=== PATIENT | female | born 1955 | race Caucasian/White ===

== ENCOUNTER 2018-10-04 08:44 | Inpatient (IN) | payer MEDICAID ==
--- NOTE | 2018-10-03 15:27 | NUR ---
PATIENT WAS SEEN IN [facility] TODAY. SHE HAS AN OPEN, RED WOUND WITH YELLOW DRAINAGE. PHOTO WAS TAKEN AND SHOWN TO DR KELLEY. DR KELLEY STATED THAT WE WILL PROCEED WITH THE SURGERY.
[2018-10-03 16:06] LABS: BASOPHILS % (AUTO) 0.3 % (0-1); EOSINOPHILS # (AUTO) 0.1 X10'3 (0-0.9); EOSINOPHILS % (AUTO) 1.3 % (0-6); LYMPHOCYTES # (AUTO) 0.7 X10'3 (1.1-4.8); LYMPHOCYTES % (AUTO) 7.6 % (21-51); MEAN CORPUSCULAR HEMOGLOBIN 34.2 PG (27.0-31.0); MEAN CORPUSCULAR HGB CONC 33.1 % (33.0-36.5); MEAN CORPUSCULAR VOLUME 103.3 FL (78-98); MEAN PLATELET VOLUME 7.3 FL (7.4-10.4); MONOCYTES # (AUTO) 0.9 X10'3 (0-0.9); MONOCYTES % (AUTO) 9.2 % (2-12); NEUTROPHILS % (AUTO) 81.6 % (42-75); PRE OP HEMATOCRIT 36.9 % (35.0-45.0); PRE OP HEMOGLOBIN 12.2 g/dL (12.0-16.0); PRE OP PLATELET COUNT 514 X10'3 (140-440); RED BLOOD COUNT 3.57 X10'6 (4.20-5.60); RED CELL DISTRIBUTION WIDTH 14.6 % (11.5-14.5)
[2018-10-03 16:21] LABS: ALBUMIN 3.2 G/DL (3.4-5.0); ALBUMIN/GLOBULIN RATIO 0.8 (1.1-1.5); ALKALINE PHOSPHATASE 82 IU/L (46-116); BLOOD UREA NITROGEN 17 MG/DL (7-18); BUN/CREATININE RATIO 17.2 (6.6-38.0); CALCIUM 8.7 MG/DL (8.5-10.1); CHLORIDE 93 MMOL/L (99-107); CREATININE 0.99 MG/DL (0.40-0.90); PRE OP ALT 17 U/L (30-65); PRE OP ANION GAP 8 (8-16); PRE OP AST 15 U/L (10-37); PRE OP BILIRUB, TOTAL 0.9 MG/DL (0.0-1.0); PRE OP GLUCOSE 124 MG/DL (70-104); PRE OP POTASSIUM 3.6 MMOL/L (3.4-5.1); PRE OP SODIUM 133 MMOL/L (135-145); TOTAL CARBON DIOXIDE 32.4 MMOL/L (24-32); TOTAL PROTEIN 7.3 G/DL (6.4-8.2); eGFR 57 ML/MIN
[2018-10-04] VITALS (20 sets, daily range): BP systolic 104–160; BP diastolic 56–102
[~2018-10-04] VITALS: Ht 160 cm; Wt 68.0 kg
[~2018-10-04 08:44] MED LIST: ALBU18HF2 IH; CHLO25TA10 PO; DOCUMENT DATE & TIME OF BETA-BLOCKER PO ONE; METO25TA6 PO; MORP15TA PO; ONDA8TAB13; POTA8CAP9 PO; VANCOMYCIN INJ 1000 MG in NORMAL SALINE 250ml IV.SOLN IV ONE; albuterol 2.5 MG/3 ML nebule NEB ONE; cefazolin/dext.iso 2gm/100 ML IV ONE; famotidine 20mg tablet PO ONE; ringers solution, lacted 1,000 ML IV SCH
[2018-10-04] MEDS ORDERED: cloNIDine hcl/PF 100mcg/ml inj ONE (12:33)
[2018-10-04] MEDS ORDERED: ROPIVAcaine 0.5% (5mg/ml) 30ml vial ONE (12:33)
[2018-10-04] MEDS ORDERED: ROPIVAcaine inj 200 MG in normal saline 100ml IV soln 60 ML IU ONE (13:15)
[2018-10-04] MEDS ORDERED: midazolam 2 mg/2 ml injection ONE (14:12)
[2018-10-04] MEDS ORDERED: fentaNYL/PF 50MCG/1 ML 2ML syringe ONE ×2 (14:12→16:39)
[2018-10-04] MEDS ORDERED: succinylcholine 20mg/ml inj IV ONE (14:42)
[2018-10-04] MEDS ORDERED: tranexamic acid inj. 680 MG in normal saline 100ml IV soln 100 ML IV ONE ×3 (14:45→21:25)
[2018-10-04] MEDS ORDERED: ondansetron/PF 4mg/2ml inj ONE (14:58)
[2018-10-04] MEDS ORDERED: LIDOcaine 1%/PF 5ML 10 MG/ML VIAL ONE (14:59)
[2018-10-04] MEDS ORDERED: propofol inj 20 ML IV ONE (14:59)
[2018-10-04] MEDS ORDERED: albumin (Human) 5% 250ml 250 ML IV ONE (15:17)
[2018-10-04] MEDS ORDERED: ringers solution, lacted 1,000 ML IV SCH (15:27)
[2018-10-04] MEDS ORDERED: fentaNYL/PF 50MCG/1 ML 2ML syringe IV PRN ×2 (15:30)
[2018-10-04] MEDS ORDERED: ondansetron/PF 4mg/2ml inj IV PRN ×2 (15:30→18:25)
[2018-10-04] MEDS ORDERED: labetalol 20mg/4ml (5mg/ml) syringe IV PRN (15:30)
[2018-10-04] MEDS ORDERED: morphine 4 MG/ML inj SYRINge IV PRN (15:30)
[2018-10-04] MEDS ORDERED: hydrALAZINE 20mg/ml inj. IV PRN (15:30)
[2018-10-04] MEDS ORDERED: labetalol 20mg/4ml (5mg/ml) syringe IV ONE (16:33)
[2018-10-04] MEDS ORDERED: morphine 10mg/ml inj. ONE (17:24)
--- NOTE | 2018-10-04 18:02 | NUR ---
Received from OR via BED, accompanied by Anesthesiologist DR ENCARNACION and report given by Anesthesiologist. PT DROWSY, ANSWERS QUESTIONS APPROPRIATELY, DENIES PAIN, LEFT SHOULDER W/DRSG, SHOULDER WRAP, ICE PACK AND SLING IN PLACE, LEFT HAND/WRIST BRUISED AND SLIGHTLY SWOLLEN. PT ABLE TO MOVE FINGERS, PWD. Addendum: 10/04/18 at 1832 by Jenna Akins RN Amended: Links added.
[2018-10-04] MEDS: ROPIVAcaine 0.2%/PF PAIN PUMP 550 ML IJ SCH (18:20)
[2018-10-04] MEDS ORDERED: acetaminophen 325mg tablet PO PRN (18:25)
[2018-10-04] MEDS ORDERED: HYDROmorphone inj. 0.5 MG/0.5 ML DISP.SYRIN IV PRN (18:25)
[2018-10-04] MEDS ORDERED: magnesium hydroxide 30ml (MOM) UD suspension PO PRN (18:25)
[2018-10-04] MEDS ORDERED: chlorthalidone 25mg tablet PO PRN (18:25)
[2018-10-04] MEDS ORDERED: HYDROmorphone 1 mg/ml syringe IV PRN (18:25)
[2018-10-04] MEDS ORDERED: diphenhydrAMINE 25mg capsule PO PRN ×2 (18:25)
[2018-10-04] MEDS ORDERED: oxyCODONE IR 5mg (immed. release) tablet PO PRN (18:25)
[2018-10-04] MEDS ORDERED: bisacodyl 10mg suppository rectal RC PRN (18:25)
[2018-10-04] MEDS ORDERED: albuterol 2.5 MG/3 ML nebule NEB PRN (18:45)
[2018-10-04] MEDS ORDERED: TETRAcaine 0.5% ophthalmic drops 15ml RIGHTEYE PRN (18:55)
[2018-10-04] MEDS: morphine 4 MG/ML inj SYRINge IV PRN ×2 (19:03→19:26)
--- NOTE | 2018-10-04 19:37 | NUR ---
PT HAD C/O RIGHT EYE PAIN, STATES IT FEELS SCRATCHED, CALL INTO DR ENCARNACION, UPDATED, ORDERS RECEIVED, PT HAD BEEN GIVEN 4 MG MORPHINE X 2 W/O ANY IMPROVEMENT, TETRACAINE EYE DROPS INSTILLED TO RIGHT EYE AND PAIN IMMEDIATELY IS GONE. REPORT CALLED TO RECEIVING RN. Addendum: 10/04/18 at 1939 by Jenna Akins RN Amended: Links added.
--- NOTE | 2018-10-04 19:52 | NUR ---
Report called to receiving nurse. Transferred via BED, 2 BAGS OF PT Belongings SENT W/PT TO ROOM 4013A, SENIOR TECHNICAL PROJECT MANAGER AT BEDSIDE TO RECEIVE PT, BLL, SIDE RAILS UP X 2, CALL LIGHT GIVEN TO PT. Special Issues communicated to receiving nurse. YES. Addendum: 10/04/18 at 2004 by Jenna Akins RN Amended: Links added.
[2018-10-04] MEDS ORDERED: vancomycin/NS 1 GM ADD-VANTAGE 250 ML IV SCH (20:00)
[2018-10-04] MEDS ORDERED: morphine IR (immed. release) 30mg tablet PO PRN (20:00)
[2018-10-04] MEDS: acetaminophen 325mg tablet PO SCH (20:18)
[2018-10-04] MEDS: gabapentin 300mg capsule PO SCH (20:18)
[2018-10-04] MEDS: ketorolac tromethamine 15mg/ml inj. IV SCH (20:19)
[2018-10-04] MEDS: metoprolol tartrate 25mg tablet PO SCH (20:19)
[2018-10-04] MEDS ORDERED: sennosides 8.6mg tablet PO SCH (21:00)
[2018-10-05 02:00] VITALS: BP 100/64
[2018-10-05] MEDS: ketorolac tromethamine 15mg/ml inj. IV SCH ×2 (02:12→08:38)
[2018-10-05] MEDS: acetaminophen 325mg tablet PO SCH ×2 (02:19→08:43)
[2018-10-05] MEDS: potassium cl 20mEq in 1/2 NS 1,000 ML IV SCH ×2 (02:20→02:22)
[2018-10-05 06:00] VITALS: BP 123/69
[2018-10-05] MEDS ORDERED: ROPIVAcaine inj 200 MG in normal saline 100ml IV soln 60 ML IU ONE (06:00)
[2018-10-05 06:07] LABS: BASOPHILS % (AUTO) 0.1 % (0-1); EOSINOPHILS # (AUTO) 0.1 X10'3 (0-0.9); EOSINOPHILS % (AUTO) 1.3 % (0-6); HEMATOCRIT 26.7 % (35.0-45.0); HEMOGLOBIN 8.9 g/dl (12.0-16.0); LYMPHOCYTES # (AUTO) 0.6 X10'3 (1.1-4.8); LYMPHOCYTES % (AUTO) 7.9 % (21-51); MEAN CORPUSCULAR HEMOGLOBIN 34.5 PG (27.0-31.0); MEAN CORPUSCULAR HGB CONC 33.3 % (33.0-36.5); MEAN CORPUSCULAR VOLUME 103.6 FL (78-98); MEAN PLATELET VOLUME 7.4 FL (7.4-10.4); MONOCYTES # (AUTO) 0.8 X10'3 (0-0.9); MONOCYTES % (AUTO) 9.9 % (2-12); NEUTROPHILS # (AUTO) 6.4 X10'3 (1.8-7.7); NEUTROPHILS % (AUTO) 80.8 % (42-75); PLATELET COUNT 367 X10'3 (140-440); RED BLOOD COUNT 2.57 X10'6 (4.20-5.60); RED CELL DISTRIBUTION WIDTH 14.3 % (11.5-14.5)
[2018-10-05 06:23] LABS: ANION GAP 9 (8-16); CHLORIDE 95 MMOL/L (99-107); POTASSIUM 3.5 MMOL/L (3.5-5.1); SODIUM 134 MMOL/L (135-145); TOTAL CARBON DIOXIDE 30.1 MMOL/L (24-32)
--- NOTE | 2018-10-05 06:49 | NUR ---
Report given to Sharri SOSA.
[2018-10-05] MEDS ORDERED: potassium chloride 8mEq ER tablet PO SCH (08:00)
[2018-10-05] MEDS ORDERED: aspirin 325mg tablet PO SCH (08:30)
[2018-10-05] MEDS: gabapentin 300mg capsule PO SCH ×2 (08:42→13:00)
[2018-10-05] MEDS: metoprolol tartrate 25mg tablet PO SCH (08:43)
[2018-10-05 10:00] VITALS: BP 146/64
[2018-10-05] MEDS ORDERED: ASPI-1 PO (11:03)
[2018-10-05] MEDS: ROPIVAcaine 0.2%/PF PAIN PUMP 550 ML IJ SCH (11:34)
--- NOTE | 2018-10-05 12:36 | NUR ---
Joint replacement consult: Pt seen by TOOTIE for written/verbal high protein ed. TOOTIE reviewed high protein needs for wound healing, immune strength, high protein foods, and protein supplementation options. TOOTIE contact information provided in case of further questions. Agrees to cottage cheese and fruit [id number]; TOOTIE d/w dietary. Addendum: 10/05/18 at [address] Amended: Links added.
[2018-10-05] MEDS: oxyCODONE IR 5mg (immed. release) tablet PO PRN ×2 (13:01→14:52)
--- NOTE | 2018-10-05 16:10 | NUR ---
Received discharge orders from Dr. Rodriguez/EFRAÍN Myers. Discontinued IV in right wrist with cannula intact. Reviewed discharge instructions, Ropivicaine dosing and gave written instructions on d/c of Ropivicaine pump. Discharged via w/c to personal vehicle at 1610.
[2018-10-05] MEDS ORDERED: celeCOXIB 100mg capsule PO SCH (20:00)
[2018-10-06] MEDS ORDERED: acetaminophen 325mg tablet PO PRN (18:25)
== END 2018-10-05 16:10 | disposition home health service (06) | DRG 315 ==
LOC: PAS IN 08:44 → EDSTATUS 12:45 → ORTHO 4S 19:49
PROVIDERS: ADMIT Orthopaedic Surgery; ATTEND Orthopaedic Surgery
PROC: 0PSG04Z Reposition Left Humeral Shaft with Internal Fixation Device, Open Approach (ICD-10-PCS; 2018-10-04)
PROC: 3E0T3BZ Introduction of Anesthetic Agent into Peripheral Nerves and Plexi, Percutaneous Approach (ICD-10-PCS; 2018-10-04)
PROC: 0RRK00Z Replacement of Left Shoulder Joint with Reverse Ball and Socket Synthetic Substitute, Open Approach (ICD-10-PCS; principal; 2018-10-04 14:00)
DX: S42.352A Displaced comminuted fracture of shaft of humerus, left arm, initial encounter for closed fracture (principal); D50.0 Iron deficiency anemia secondary to blood loss (chronic); S42.343A Displaced spiral fracture of shaft of humerus, unspecified arm, initial encounter for closed fracture; G56.30 Lesion of radial nerve, unspecified upper limb; I10 Essential (primary) hypertension; S42.302A Unspecified fracture of shaft of humerus, left arm, initial encounter for closed fracture; X58.XXXA Exposure to other specified factors, initial encounter; Y93.89 Activity, other specified; Y92.89 Other specified places as the place of occurrence of the external cause; Y99.8 Other external cause status
CPT/HCPCS: 36415; 71046; 71250; 73060; 76000; 80051; 80053; 82948; 85025; 87070; 93005; 94640; 94760; 97110; 97116; 97161; 97530; A4565; A6449; A7000; G0378; J0330; J0690; J0735; J1885; J2001; J2250; J2270; J2405; J2704; J2795; J3010; J3370; J3490; J7030; J7040; J7120; P9045